=== PATIENT | male | born 1940 | race Caucasian/White ===

== ENCOUNTER → 2016-08-18 | Day surgery (SDC) | payer OTHER ==
[~2016-08-18] MED LIST: ALLEGRA-D1 TAB.SR1 PO; AMLODIPINE-BENA1 CA3 PO; ASPIRIN EC81 M1 PO; ATORVASTATIN CA10 MG PO; AZOR 10/40 MG T1 TAB PO; BRILINTA90 MG PO; CLARITIN10 M2 PO; HYDROCODON-ACE1 EAC7 PO; LANSOPRAZOLE30 M2 PO; LIPITOR PO; LOTREL 10-20 MG1 CAP PO; LOTREL 5/10 MG1 CAP PO; METOPROLOL TAR25 MG PO; MULTI VITAMIN1 EACH PO; MULTI-VITAMIN1 TAB PO; NABUMETONE PO; NITROSTAT0.4 MG SL; OMEPRAZOLE20 M2 PO; PROTONIX PO; ST. JOSEPH ASP325 MG PO; VIT E PO
--- NOTE | ~2016-08-18 | OR ---
Unit #: [id number] #: [id number] Patient: SHAY CALLES JR [id number] [address] [place], [place] [address] [id number] O MR#: [id number] NAME: SHAY CALLES JR ROOM: Date of Procedure: 08/18/2016 Admission Date: 08/18/2016 Surgeon: Thanh Alfred M.D. : 1940 Attending Physician: Thanh Alfred M.D. Referring Physician: Thanh Alfred M.D. Primary Care Physician: Isidro West Jr., M.D. OPERATIVE REPORT PRIMARY CARE PHYSICIAN Isidro West M.D. PREOPERATIVE DIAGNOSES The patient presented with a history of noncardiac chest pain. He gets intermittent prickling pain as was continuous pain in the left parasternal area. He is taking once a day pantoprazole 40 mg p.o. daily and denies classic retrosternal ascending heartburn, which is controlled with the current medication. PROCEDURE PERFORMED Upper gastrointestinal endoscopy. POSTOPERATIVE DIAGNOSES Completely normal examination up to third part of duodenum. No mucosal abnormalities whatsoever present. RECOMMENDATIONS The patient will probably follow in the office in 8 to 10 weeks' time. The fact that he had a stress test in 06/2016 makes unlikely that any serious etiology being found. SEDATION USED MAC. DESCRIPTION OF PROCEDURE Following detailed explanation of potential risks and complications of an upper endoscopy, namely perforation, bleeding, complication related to sedation, the patient was brought to GI lab and laid in the left lateral decubitus position. Lubricated tip of the Olympus video upper endoscope was passed through the bite block into the proximal esophagus under direct vision. The entire esophageal mucosa was examined and appeared normal. Z-line was nicely demarcated, there being no esophagitis or hiatus hernia. The scope was then advanced into the gastric cavity and the latter was insufflated. Mucosa of the fundus, body, and antrum examined and appeared unremarkable. Pylorus was intubated with visualization of normal duodenal bulb and second and third part of duodenum. Upon withdrawal and retroflexion, incisura, cardia, and greater curve were examined and no additional findings noted. The scope was then withdrawn into the distal esophagus. The entire esophageal mucosa was examined all the way up to pharynx. No additional findings noted. The patient tolerated the procedure without any postprocedure complications. Unit #: [id number] #: [id number] Patient: SHAY CALLES Gustavo PRINCE Dictated by..Geneva Day/kristy TD: 08/19/2016 02:16 JOB #: [id number] OPERATIVE REPORT Page 1 of 1 X Thanh Alfred MD X PROCEDURE OPERATIVE NOTE
== END | disposition home or self-care (01) ==
LOC: COPS 08:33
PROVIDERS: Internal Medicine Gastroenterology
PROC: 0DJ08ZZ Inspection of Upper Intestinal Tract, Via Natural or Artificial Opening Endoscopic (ICD-10-PCS; principal; 2016-08-18 10:00)
DX: R10.13 Epigastric pain (principal); K21.9 Gastro-esophageal reflux disease without esophagitis; I25.10 Atherosclerotic heart disease of native coronary artery without angina pectoris; I10 Essential (primary) hypertension